=== PATIENT | female | born 1970 | race Two or more races ===

== ENCOUNTER → 2017-08-02 | Day surgery (SDC) | payer OTHER ==
--- NOTE | 2017-08-06 16:37 | PATH ---
Surgical Pathology Report Patient Name: SOPHIA FINCH [facility]. Rec. #: [id number] /Age/Gender: 1970 (Age: 47) / F Account: [id number] Location: [facility] Taken: 08/02/2017 Received: 08/02/2017 Reported: 08/06/2017 Physicians: Kenyon Fallon M.D. Specimen(s) Received A: RIGHT BREAST SPECIMEN WITH CALCIFICATION B: RIGHT BREAST SPECIMN WITHOUT CALCIFICATIONS Clinical History Nonpalpable lesion Mammographic findings: Microcalcification, suspicious Final Diagnosis A. RIGHT BREAST, WITH CALCIFICATIONS, STEREOTACTIC BIOPSY: BREAST TISSUE WITH APOCRINE METAPLASIA, FIBROSIS, AND CALCIFICATIONS. B. RIGHT BREAST, WITHOUT CALCIFICATIONS, STEREOTACTIC BIOPSY: BREAST TISSUE WITH FIBROSIS AND CALCIFICATIONS. Electronically Signed Luda Purdy M.D. Gross Description A. Received in formalin labeled "right breast with calcifications," are 4 conway-yellow, cylindrical portions of fibroadipose tissue ranging from 0.5-2.5 cm in length and averaging 0.3 cm in diameter. The specimens are submitted in toto in one cassette. B. Received in formalin labeled "right breast without calcifications," are 6 conway-yellow, cylindrical portions of fibroadipose tissue ranging from 1.5-3.5 cm in length and averaging 0.3 cm in diameter. The specimens are submitted in toto in one cassette. Time to formalin fixation: 5 minutes Total formalin fixation time: Approximately 28 hours. 08/03/2017 [place]udi08/03/2017
== END | disposition home or self-care (01) ==
LOC: FMAMMOTONE 12:11
PROVIDERS: ATTEND Obstetrics & Gynecology
PROC: 0HBT3ZX Excision of Right Breast, Percutaneous Approach, Diagnostic (ICD-10-PCS; principal; 2017-08-02)
DX: N60.11 Diffuse cystic mastopathy of right breast (principal); R92.1 Mammographic calcification found on diagnostic imaging of breast; N64.89 Other specified disorders of breast
CPT/HCPCS: 19081; 87899; 88305-TC; A4648

== ENCOUNTER 2018-05-30 16:31 | Emergency (ER) | payer OTHER ==
--- NOTE | 2018-05-30 16:48 | PDOC ---
Rapid Medical Evaluation Time Seen by Provider: 05/30/18 16:47 Medical Evaluation: 05/30/18 16:47 I performed a brief in-person evaluation of this patient. Chief complaint: Dental pain x 5 days Pertinent physical exam findings: Right-sided facial swelling. No trismus. I have ordered the following: Urine Patient will proceed to the ED for further evaluation. Discharge Disposition - Diagnosis Pain, dental - Referrals - Patient Instructions - Post Discharge Activity
[2018-05-30 16:51] VITALS: BP 104/60; PULSE 73; TEMP 98.2; BMI 21.4
--- NOTE | 2018-05-30 18:36 | PDOC ---
History of Present Illness - General Chief Complaint: Toothache Stated Complaint: TOOTH PAIN Time Seen by Provider: 05/30/18 16:47 History Source: Patient, [employer] Used (#[id number]) Exam Limitations: Clinical Condition - History of Present Illness Initial Comments: 05/30/18 18:44 Patient with history of dental cavity in the right upper tooth present with complaint of one-week history of intermittent dental pain and now with 3 day history of swelling to the right side of her face which she believes from swelling comes. Patient denies fever, chills, blurry vision, headache or weakness. Patient has not seen anybody for symptoms. Denies any other symptoms Past History - Past Medical History Allergies/Adverse Reactions: Allergies Allergy/AdvReac Type Severity Reaction Status Date / Time aspirin Allergy Verified 05/30/18 16:51 Home Medications: Ambulatory Orders Amox-Tr/K Cl [Augmentin - 875Mg Tablet] 1 tab PO BID #14 tablet 05/30/18 Methylprednisolone [Medrol Dose Brian] 4 mg PO ASDIR #21 tablet 05/30/18 COPD: No - Surgical History Appendectomy: Yes - Immunization History Immunization Up to Date: Yes - Suicide/Smoking/Psychosocial Hx Smoking History: Never smoked Have you smoked in the past 12 months: No Information on smoking cessation initiated: No Hx Alcohol Use: No Drug/Substance Use Hx: No Review of Systems - Review of Systems Able to Perform ROS?: Yes Is the patient limited Nigerien proficient: No Constitutional: No: Chills, Fever, Malaise HEENTM: Yes: Symptoms Reported, See HPI, Dental Problems. No: Eye Pain, Blurred Vision, Tearing, Recent change in vision, Double Vision, Cataracts, Ear Pain, Ocular Prothesis, Ear Discharge, Nose Pain, Nose Congestion, Tinnitus, Nose Bleeding, Hearing Loss, Throat Pain, Throat Swelling, Mouth Pain, Difficulty Swallowing, Mouth Swelling, Other Respiratory: No: Symptoms reported, See HPI, Cough, Orthopnea, Shortness of Breath, SOB with Exertion, SOB at Rest, Stridor, Wheezing, Productive cough, Hemoptysis, Other Cardiac (ROS): No: Symptoms Reported, See HPI, Chest Pain, Edema, Irregular Heart Rate, Lightheadedness, Palpitations, Syncope, Chest Tightness, Other ABD/GI: No: Nausea, Vomiting Neurological: No: Headache, Dizziness All Other Systems: Reviewed and Negative *Physical Exam - Vital Signs Last Vital Signs Temp Pulse Resp BP Pulse Ox 98.2 F 73 17 104/60 99 05/30/18 16:46 05/30/18 16:46 05/30/18 16:46 05/30/18 16:46 05/30/18 16:46 - Physical Exam Comments: 05/30/18 18:46 GENERAL: Well developed, well nourished. Awake and alert. No acute distress. HEENT: Mild swelling to right side of face. Mild periodontal swelling to right upper premolars. No erythema face. No evidence of cellulitis to face. Normocephalic, atraumatic. PERRLA, EOMI. No conjunctival pallor. Sclera are non- icteric. Moist mucous membranes. . NECK: Supple. Full ROM. CARDIOVASCULAR: Regular rate and rhythm. No murmurs, rubs, or gallops. Distal pulses are 2+ and symmetric. PULMONARY: No evidence of respiratory distress. Lungs clear to auscultation bilaterally. No wheezing, rales or rhonchi. ABDOMINAL: Soft. Non-tender. Non-distended. No rebound or guarding. No organomegaly. Normoactive bowel sounds. SKIN: Warm and dry. Normal capillary refill. NEUROLOGICAL: Alert, awake, appropriate. Gait is normal without ataxia. PSYCHIATRIC: Cooperative. Good eye contact. Appropriate mood General Appearance: Yes: Nourished, Appropriately Dressed. No: Apparent Distress Moderate Sedation - Procedure Monitoring Vital Signs: Procedure Monitoring Vital Signs Temperature 98.2 F 05/30/18 16:46 Pulse Rate 73 05/30/18 16:46 Respiratory Rate 17 05/30/18 16:46 Blood Pressure 104/60 05/30/18 16:46 O2 Sat by Pulse Oximetry (%) 99 05/30/18 16:46 Medical Decision Making - Medical Decision Making 05/30/18 18:49 Patient with no past medical history present with complaint of one-week history of right upper tooth pain with 3 day history of swelling to right side of the gums and face. Exam significant for mild peridental swelling to right upper premolars and mild swelling to right side of face with no erythema or increased warmth suggestive of cellulitis. Patient stable for outpatient management with Augmentin and Medrol pack given aspirin ALLERGY for periodontitis with dental follow-up. *DC/Admit/Observation/Transfer Diagnosis at time of Disposition: Pain, dental, Periodontitis - Discharge Dispostion Disposition: HOME Condition at time of disposition: Stable Decision to Admit order: No - Prescriptions Prescriptions: Amox-Tr/K Cl [Augmentin - 875Mg Tablet] 1 tab PO BID #14 tablet Methylprednisolone [Medrol Dose Brian] 4 mg PO ASDIR #21 tablet - Referrals Referrals: Reji Bustamante MD [Primary Care Provider] - - Patient Instructions Printed Discharge Instructions: DI for Dental Pain Additional Instructions: Take medications as prescribed. He can take Tylenol as needed for pain as well. Follow-up with dentist as soon as possible for repeat assessment and management of tooth pain. - Post Discharge Activity
== END 2018-05-30 18:55 | disposition home or self-care (01) ==
LOC: JERFT 16:31
DX: K05.30 Chronic periodontitis, unspecified (principal)
CPT/HCPCS: 99281-25